=== PATIENT | female | born 1970 | race Caucasian/White ===

== ENCOUNTER 2016-10-28 14:41 | Emergency (ER) | payer OTHER ==
[~2016-10-28] VITALS: Ht 157.5 cm; Wt 84.1 kg
[2016-10-28 14:48] VITALS: BP 127/86; PULSE 82; RESP 16; O2SAT 100
--- NOTE | 2016-10-28 15:09 | ED.REPORT ---
HPI-General Illness Date of Service Oct 28, 2016 ED Provider: Dr. Benjamin 46 y/o female with a hx of right rotator cuff presents to the ED complaining of right sided neck pain that radiates down to her right shoulder, onset 4 days ago. The pt states she was reaching for a tote on a high shelf when she over- extended and felt a pull in her neck. She also slept crooked the same night due to her dogs being in the bed. She took Ibuprofen which did not provide any relief. The pt also saw a chiropractor and states it seemed to help initially but then she began experiencing discomfort in her back.Since then, she has also been getting a tingling sensation and a feeling of "pins and pricks" in her face and her right hand, especially in her right 4th and 5th finger. The pt does not think she fractured her neck and states the C-collar she has on is not very helpful. Nursing Notes Stated Complaint: PULLED NECK AND RIGHT SHOULDER Chief Complaint: General Complaint Nursing Notes Reviewed: Yes Allergies: Coded Allergies: codeine (Verified Allergy, Severe, Rash,Itching,, 10/28/16) Scheduled PRN Cyclobenzaprine (Cyclobenzaprine) 10 Mg Tablet 10 MG PO TID PRN PRN Spasm Hydrocodone-Acetaminophen 10-325 mg (Hydrocodone-Acetaminophen 10-325 mg) 1 Each Tablet 1 TABLET PO Q6H PRN PRN For Pain General Time Seen by MD: 15:09 Chief Complaint Other (neck pain) Hx Obtained From: Patient Arrived By: Walk-in Sudden in Onset?: Yes Onset Occurred: 4 days ago Symptom Duration: Since onset Location: : Neck: Shoulder right Quality: Painful Severity: Current: Moderate Severity: Maximum: Moderate Recent Healthcare: Recent doctor visit Similar Sx Previous: No Past Medical History Past Medical History Endometrial cancer Right rotator cuff Past Surgical History Knee Smoking History Unknown if Ever Smoker Social History Other Social History: Good social support Ambulatory Status Independent Review of Systems Reports: tingling sensation in the face and right 4th and 5th finger Full Review of Systems Musculoskeletal: Reports: Joint pain (right shoulder), Neck pain Complete sys rev & neg: except as marked. Physical Exam Vital Signs Vital Signs Date Time Temp Pulse Resp B/P Pulse Ox O2 Delivery O2 Flow Rate FiO2 10/28/16 14:48 36.1 82 16 127/86 100 Room Air Initial VS: Reviewed Head / Eyes: Atraumatic, Normocephalic Respiratory: No respiratory distress Cardiovascular: Regular rate & rhythm Extremities: Vascular intact, Neuro intact, No swelling, No tenderness Skin: Warm, Dry, No cyanosis Neurologic: Alert, Oriented, Nonfocal General/Constitutional: Awake, Alert, No acute distress, Cooperative Neck: Supple, Full range of motion Midline tenderness at C6 and C7. Right sided para-cervical muscle tenderness post spurlings test on right side Neurologic: Oriented X3, Speech NL, No motor deficits, No sensory deficits Re-Eval/Medical Decision Source of Hx: Old records Time of Eval: 15:18 Re-Evaluation/Progress Note: Discussed diagnosis and plan to discharge. Pt understands and agrees with the plan. F/U instructions and RTER warning given. All questions addressed. Counseled Regarding: Diagnosis, Need for follow-up, When/why to return to ED Discharge & Departure Primary Impression: Cervical radiculopathy at C8 Additional Impression: Neck strain Encounter type: initial encounter Qualified Code: S16.1XXA - Strain of muscle, fascia and tendon at neck level, initial encounter Disposition: Home Discharge Condition All VS Reviewed: Yes Condition: Stable Additional Instructions: Thank you for entrusting us with your care today. You have a pinched a nerve at C8 on the right side in your neck. Your symptoms should resolve with time, muscle relaxers and Ibuprofen. If you dont see any improvement you may need an MRI Take the medication as prescribed Check in with your PCP next week for further evaluation. Dont overexert yourself, especially if it hurts. Return to the ER for new or worsening symptoms Scribe Attestation Portions of this note were transcribed by Danika Ortiz. I, , personally performed the history, physical exam and medical decision- making;I reviewed and confirmed the accuracy of the information in the transcribed note. Signed by Sandi Barker. 10/28/16 17:50 Jeff Benjamin DO Oct 28, 2016 15:09 Danika Ortiz Oct 28, 2016 15:30
[2016-10-28] MEDS ORDERED: HYDROcodone-APAP 10-325 mg PO ONE (15:50)
[2016-10-28] MEDS ORDERED: CYCL10TA9 PO (16:15)
[2016-10-28] MEDS ORDERED: HYDR-3740 PO (16:15)
== END 2016-10-28 16:21 | disposition home or self-care (01) ==
LOC: SED 14:41
DX: M50.13 Cervical disc disorder with radiculopathy, cervicothoracic region (principal); S16.1XXA Strain of muscle, fascia and tendon at neck level, initial encounter; X50.1XXA Overexertion from prolonged static or awkward postures, initial encounter; Y93.89 Activity, other specified; Y92.89 Other specified places as the place of occurrence of the external cause; Y99.8 Other external cause status; Z88.5 Allergy status to narcotic agent